=== PATIENT | female | born 1935 | race Caucasian/White ===

== ENCOUNTER → 2016-06-27 | Outpatient (CLI) | payer MEDICARE, OTHER ==
--- NOTE | 2016-06-28 09:16 | RAD ---
EXAM DESCRIPTION: Left foot series. CLINICAL HISTORY: Evaluation for foreign body COMPARISON: None. TECHNIQUE: Three views were submitted for evaluation. 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 Mild degenerative change of the midfoot noted. No fracture noted. IMPRESSION: There is a small linear 3 mm density seen subjacent to the calcaneus on the lateral radiograph. This could be a foreign body Electronically signed by: Molina Galindo MD 06/28/2016 09:13
== END ==
LOC: YCFC.O 15:32
PROVIDERS: ATTEND Nurse Practitioner Family
DX: M79.672 Pain in left foot (principal)

== ENCOUNTER → 2016-07-28 | Outpatient (CLI) | payer MEDICARE, OTHER | END | disposition home or self-care (01) | LOC: YCFC.O 10:43 | PROVIDERS: ATTEND Nurse Practitioner Family | DX: R50.9 Fever, unspecified (principal) ==